=== PATIENT | female | born 1975 | race Caucasian/White ===

== ENCOUNTER → 2016-10-12 | Outpatient (CLI) | payer BC ==
[~2016-10-12] MED LIST: NO HOME MEDICATIONS; NORCO 325 MG-51 TAB PO
== END ==
LOC: MHCPAIN 10:02
DX: G89.29 Other chronic pain (principal); M54.16 Radiculopathy, lumbar region; M47.817 Spondylosis without myelopathy or radiculopathy, lumbosacral region
CPT/HCPCS: G0463

== ENCOUNTER 2018-11-21 13:45 | Emergency (ER) | payer BC ==
[~2018-11-21] VITALS: Ht 172.7 cm; Wt 95.5 kg
[2018-11-21 13:48] VITALS: TEMP 98.9
[2018-11-21 14:17] LABS: BASO % 0.5 % (0.0-2.0); EOS # 0.2 (0.0-0.7); EOS % 1.7 % (0-4.0); GRAN # 5.9 (1.4-6.5); GRAN % 66.5 % (42.2-75.2); HEMATOCRIT 41.4 % (37.0-47.0); HEMOGLOBIN 14.4 g/dl (12.5-16.0); LYMPH # 2.2 (1.2-3.4); LYMPH % 24.8 % (20.0-51.0); MEAN CELL VOLUME 98 fl (80.0-100.0); MEAN CORPUSCULAR HEMOGLOBIN 34 pg (27.0-31.0); MEAN CORPUSCULAR HGB CONC 35 g/dl (33.0-37.0); MEAN PLATELET VOLUME 9.1 fl (7.4-10.4); MONO # 0.6 (0.1-0.6); MONO % 6.2 % (1.7-9.3); PLATELET COUNT 276 K/mm3 (130-400); RED BLOOD COUNT 4.23 M/mm3 (4.10-5.30); REDCELL DISTRIBUTION WIDTH-CV 12.8 % (11.5-14.5)
[2018-11-21 14:21] LABS: INR 0.9 (0.8-3.0); PROTHROMBIN TIME 10.7 SECONDS (9.7-12.8)
[2018-11-21 14:33] LABS: ALANINE AMINOTRANSFERASE 27 U/L (9-52); ALBUMIN 4.5 gm/dL (3.5-5.0); ALKALINE PHOSPHATASE 75 U/L (50-136); ANION GAP 12 mmol/L (7-16); AST,SGOT 28 U/L (15-37); BLOOD UREA NITROGEN 11 mg/dL (7-17); CARBON DIOXIDE 21 mmol/L (22-30); CHLORIDE 104 mmol/L (98-107); GLUCOSE 108 mg/dL (74-106); LIPASE 139 U/L (23-300); POTASSIUM 3.8 mmol/L (3.4-5.0); SODIUM 138 mmol/L (137-145); TOTAL PROTEIN 7.8 gm/dL (6.4-8.2)
[2018-11-21 14:46] LABS: TROPONIN-I < 0.012 ng/mL (0.000-0.035)
[2018-11-21] MEDS ORDERED: CELEXA40 MG PO (14:48)
[2018-11-21] MEDS ORDERED: HCTZ 25MG TAB25 MG PO ×2 (14:48→17:16)
[2018-11-21] MEDS ORDERED: NORVASC 10MG10 MG PO ×2 (14:49→17:16)
[2018-11-21] MEDS ORDERED: COREG 25MG25 MG/TAB PO (14:49)
[2018-11-21] MEDS ORDERED: APRESOLINE 25MG25 MG PO (14:49)
[2018-11-21] MEDS ORDERED: PRINIVIL20 MG PO (14:50)
[2018-11-21] MEDS ORDERED: VALTREX1 GM PO (14:50)
[2018-11-21] MEDS ORDERED: CELEXA 20MG20 MG/TAB PO (17:16)
[2018-11-21 17:31] VITALS: BP 168/111; PULSE 65
== END 2018-11-21 17:27 | disposition home or self-care (01) ==
LOC: COL.ER 13:45
PROVIDERS: Emergency Medicine
DX: R07.89 Other chest pain (principal); I10 Essential (primary) hypertension; F17.210 Nicotine dependence, cigarettes, uncomplicated; F41.9 Anxiety disorder, unspecified
CPT/HCPCS: J7030

== ENCOUNTER 2019-07-26 15:10 | Emergency (ER) | payer BC ==
[~2019-07-26] VITALS: Ht 175.3 cm; Wt 90.9 kg
[~2019-07-26 15:10] MED LIST changes: +APRESOLINE 25MG25 MG PO; +CELEXA 20MG20 MG/TAB PO; +CELEXA40 MG PO; +COREG 25MG25 MG/TAB PO; +HCTZ 25MG TAB25 MG PO; +NORVASC 10MG10 MG PO; +PRINIVIL20 MG PO; +VALTREX1 GM PO
[2019-07-26 15:34] VITALS: TEMP 98.3
[2019-07-26 16:13] LABS: BASO # 0.1 (0.0-0.2); BASO % 0.6 % (0.0-2.0); EOS # 0.1 (0.0-0.7); EOS % 1.5 % (0-4.0); GRAN # 5.8 (1.4-6.5); GRAN % 66.7 % (42.2-75.2); HEMATOCRIT 43.5 % (37.0-47.0); HEMOGLOBIN 14.8 g/dl (12.5-16.0); LYMPH # 1.9 (1.2-3.4); LYMPH % 22.5 % (20.0-51.0); MEAN CELL VOLUME 98 fl (80.0-100.0); MEAN CORPUSCULAR HEMOGLOBIN 34 pg (27.0-31.0); MEAN CORPUSCULAR HGB CONC 34 g/dl (33.0-37.0); MEAN PLATELET VOLUME 8.9 fl (7.4-10.4); MONO # 0.7 (0.1-0.6); MONO % 8.2 % (1.7-9.3); PLATELET COUNT 298 K/mm3 (130-400); RED BLOOD COUNT 4.42 M/mm3 (4.10-5.30); REDCELL DISTRIBUTION WIDTH-CV 13.2 % (11.5-14.5)
[2019-07-26 16:23] LABS: ALANINE AMINOTRANSFERASE 32 U/L (9-52); ALBUMIN 4.8 gm/dL (3.5-5.0); ALKALINE PHOSPHATASE 81 U/L (50-136); ANION GAP 9 mmol/L (7-16); AST,SGOT 26 U/L (15-37); BILIRUBIN,TOTAL 0.8 mg/dL (0.0-1.0); BLOOD UREA NITROGEN 14 mg/dL (7-17); CALCIUM 9.4 mg/dL (8.4-10.2); CARBON DIOXIDE 24 mmol/L (22-30); CHLORIDE 105 mmol/L (98-107); CREATININE, serum 0.68 (0.52-1.25); GLUCOSE 112 mg/dL (74-106); POTASSIUM 3.8 mmol/L (3.4-5.0); SODIUM 138 mmol/L (137-145); TOTAL PROTEIN 7.9 gm/dL (6.4-8.2)
[2019-07-26 16:34] LABS: TROPONIN-I < 0.012 ng/mL (0.000-0.035)
[2019-07-26] MEDS ORDERED: APRESOLINE 10MG10 MG PO (17:32)
[2019-07-26] MEDS ORDERED: PRINIVIL20 MG PO (17:32)
[2019-07-26 17:44] VITALS: BP 162/99; PULSE 83
== END 2019-07-26 17:45 | disposition home or self-care (01) ==
LOC: COL.ER 15:10
PROVIDERS: Emergency Medicine
DX: I10 Essential (primary) hypertension (principal); Z98.890 Other specified postprocedural states
CPT/HCPCS: J0360